=== PATIENT | female | born 1955 | race Caucasian/White ===

== ENCOUNTER 2018-05-08 10:12 | Outpatient (CLI) | payer MEDICARE | END 2018-05-08 10:13 | disposition home or self-care (01) | LOC: BICMAMMO 10:12 | PROVIDERS: ATTEND Obstetrics & Gynecology | DX: Z12.31 Encounter for screening mammogram for malignant neoplasm of breast (principal); Z80.3 Family history of malignant neoplasm of breast | CPT/HCPCS: 77063; 77067 ==

== ENCOUNTER 2019-02-11 13:02 | Outpatient (CLI) | payer MEDICARE ==
--- NOTE | 2019-02-11 14:12 | ULT ---
Exam: Bilateral renal ultrasound HISTORY: Urinary tract intact COMPARISON: None FINDINGS: Right kidney: Normal cortical echotexture. No hydronephrosis. Right kidney measurements: 6.6 x 6.5 x 11.0 cm. Left kidney: Normal cortical echotexture. No hydronephrosis Left kidney measurements 5.4 x 6.1 x 10.8 cm. Urinary bladder: Normal mucosa. IMPRESSION: No hydronephrosis.
== END 2019-02-11 13:03 | disposition home or self-care (01) ==
LOC: ULT 13:02
PROVIDERS: ATTEND Obstetrics & Gynecology
DX: N39.0 Urinary tract infection, site not specified (principal)
CPT/HCPCS: 76770

== ENCOUNTER 2022-03-25 09:59 | Outpatient (CLI) | payer MEDICARE ==
[2022-03-25] MEDS ORDERED: Iopamidol-370 76% 500 ML 1 ML ONE (12:13)
== END 2022-03-25 10:00 | disposition home or self-care (01) ==
LOC: BICCT 09:59
PROVIDERS: ATTEND Internal Medicine
DX: R10.13 Epigastric pain (principal); K21.9 Gastro-esophageal reflux disease without esophagitis; K44.9 Diaphragmatic hernia without obstruction or gangrene; K59.00 Constipation, unspecified; D17.5 Benign lipomatous neoplasm of intra-abdominal organs; K57.30 Diverticulosis of large intestine without perforation or abscess without bleeding
CPT/HCPCS: 74177; 82565; Q9967

== ENCOUNTER 2022-08-08 10:12 | Outpatient (CLI) | payer MEDICARE | END 2022-08-08 10:13 | disposition home or self-care (01) | LOC: BICMAMMO 10:12 | PROVIDERS: ATTEND Obstetrics & Gynecology | DX: N64.4 Mastodynia (principal) | CPT/HCPCS: G0279 ==

== ENCOUNTER 2024-01-29 10:29 | Outpatient (CLI) | payer MEDICARE | END 2024-01-29 10:30 | disposition home or self-care (01) | LOC: BICMAMMO 10:29 | PROVIDERS: ATTEND Student in an Organized Health Care Education/Training Program | DX: Z12.31 Encounter for screening mammogram for malignant neoplasm of breast (principal); Z80.3 Family history of malignant neoplasm of breast; Z91.89 Other specified personal risk factors, not elsewhere classified | CPT/HCPCS: 77063; 77067 ==

== ENCOUNTER 2024-04-12 07:24 | Outpatient (CLI) | payer MEDICARE ==
[2024-04-12] MEDS ORDERED: Iopamidol 370 76% 100 ML VIAL ONE (09:06)
== END 2024-04-12 07:25 | disposition home or self-care (01) ==
LOC: CT 07:24
PROVIDERS: ATTEND Physician Assistant Medical
DX: K21.9 Gastro-esophageal reflux disease without esophagitis (principal); K58.1 Irritable bowel syndrome with constipation; R10.9 Unspecified abdominal pain
CPT/HCPCS: 36415; 74177; 82565

== ENCOUNTER 2024-04-23 07:19 | Outpatient (CLI) | payer OTHER | END 2024-04-23 07:20 | disposition home or self-care (01) | LOC: ULT 07:19 | PROVIDERS: ATTEND Physician Assistant Medical | DX: K80.20 Calculus of gallbladder without cholecystitis without obstruction (principal); K82.8 Other specified diseases of gallbladder | CPT/HCPCS: 76705 ==

== ENCOUNTER 2025-03-05 09:46 | Outpatient (CLI) | payer OTHER, MEDICARE | END 2025-03-05 09:47 | disposition home or self-care (01) | LOC: BICMAMMO 09:46 | PROVIDERS: ATTEND Internal Medicine | DX: Z12.31 Encounter for screening mammogram for malignant neoplasm of breast (principal); Z80.3 Family history of malignant neoplasm of breast; Z91.89 Other specified personal risk factors, not elsewhere classified | CPT/HCPCS: 77063; 77067 ==